=== PATIENT | female | born 1985 | race Caucasian/White ===

== ENCOUNTER 2023-05-16 13:11 | Emergency (ER) | payer OTHER, SELFPAY ==
--- NOTE | ~2023-05-16 | CT_ITS ---
EXAMINATION: CT ABDOMEN AND PELVIS WITHOUT CONTRAST CLINICAL INFORMATION: Flank pain. COMPARISON: 10/07/2017. TECHNIQUE: Multidetector volumetric imaging was performed from the superior aspect of the liver through the pubic symphysis. Sagittal and coronal reformatted images were obtained on the technologist's workstation. This CT examination was performed using dose optimization techniques as appropriate, variously including the following: *Automated exposure control *Adjustment of mA and/or kV according to patient size (this includes techniques or standardized protocols for targeted exams where dose is matched to indication/reason for exam; i.e. extremities or head) *Use of iterative reconstruction technique DLP: 859 mGy-cm FINDINGS: LUNG BASES: The visualized lung bases are unremarkable. LIVER, GALLBLADDER, AND BILIARY TREE: The liver is normal in size, shape, and attenuation. No focal hepatic lesion or biliary ductal dilatation is present. The gallbladder is unremarkable with no evidence of radiopaque gallstones, gallbladder wall thickening, or obvious pericholecystic inflammatory changes. PANCREAS: Unremarkable. SPLEEN: Unremarkable. ADRENAL GLANDS: Unremarkable. KIDNEYS AND URETERS: The kidneys are normal in size, shape, and attenuation. There is a nonobstructing 1 to 2 mm calculus upper pole left kidney. There is no hydronephrosis. BLADDER: Unremarkable. GASTROINTESTINAL TRACT: The small and large bowel are unremarkable. The appendix is unremarkable. ABDOMINAL WALL: There is a small umbilical hernia containing fat. LYMPH NODES: Normal. VASCULAR: Unremarkable. PELVIC VISCERA: Unremarkable. OSSEOUS STRUCTURES: Unremarkable. CT/CT abdomen pelvis wo IV con IMPRESSION: Nonobstructing left upper pole renal calculus. Small umbilical hernia containing fat. No acute intra-abdominal process. Fleischner guidelines were followed.
[2023-05-16 14:00] VITALS: BP 145/86; PULSE 89; RESP 14; TEMP 35.8; O2SAT 97; BMI 41.2
--- NOTE | 2023-05-16 15:20 | ED.FEMALEGU ---
HPI - Female Genitourinary General Chief complaint: Urogenital-Female Stated complaint: UTI worsening/ sent by PCP Time Seen by Provider: 05/16/23 21:27 Source: patient Mode of arrival: ambulatory Limitations: no limitations History of Present Illness HPI Narrative: Patient history of kidney stone otherwise healthy last time she had stone was last year when she had lithotripsy for last 4 days patient has been dysuria and frequency went to her PCP who started her on Macrobid after diagnosis is UTI patient improved in the symptoms in today earlier patient felt pain in right flank area and feeling hot and cold today no urinary symptoms at this time no hematuria no abdominal pain pain is in right flank area which is constant dull pain no relation with movement or breathing no upper respiratory symptoms patient is feeling otherwise normal Related Data Previous Rx's Medication Instructions Recorded ibuprofen 600 mg tablet 600 mg PO Q6H PRN fever or pain 05/16/23 #30 tabs Allergies Allergy/AdvReac Type Severity Reaction Status Date / Time ciprofloxacin [From CIPRO] Allergy Unknown HIVES Verified 05/16/23 13:59 Penicillins [PENICILLINS] Allergy Unknown HIVES Verified 05/16/23 13:59 Review of Systems Review of Systems: Yes all other systems are reviewed and are negative [facility] Social History Social History Advance Directives: No Advance Directives Information Provided: No Physical Exam Vital Signs: Vital Signs: Last Vital Signs Temp 96.4 F L 05/16/23 14:00 Pulse 89 05/16/23 14:00 Resp 14 05/16/23 14:00 BP 145/86 H 05/16/23 14:00 Pulse Ox 97 05/16/23 14:00 O2 Del Method Room Air 05/16/23 14:00 BMI result Body Mass Index 41.2 Appearance: Alert. Oriented X3. No acute distress. Eyes: No pallor or icterus ENT: Pharynx normal. Oral Mucosa moist Neck: Normal inspection. Neck supple. CVS: Normal heart rate and rhythm. Pulses normal. Respiratory: No respiratory distress. Equal air entry bilateral, no wheezing/rales/rhonchi Abdomen: Soft and nontender. Bowel sounds are present, no mass palpable, deep right CVA tenderness back: No midline spine tenderness good range of mood ambulatory in steady gait Skin: Skin warm and dry. Normal skin color. Normal skin turgor. Neuro: Oriented X 3. Course Course Course Narrative: This is an RME: Additional HPI, ROS, PE not included below will be deferred to primary provider. Patient is a 37 year old female who presents to emergency department for evaluation of flank pain. She states 3 days ago she was diagnosed with a urinary tract infection and initiated on Macrobid. She is now experiencing severe 10/10 flank pain no relief with tylenol/ ibuprofen, and reports tactile fever and chills. Plan: labs Medical Decision Making Medical Decision Making [facility] Narrative: Patient with right flank pain workup negative including CT scan showing only nonobstructive kidney urine is negative likely musculoskeletal pain Differential Diagnosis Differential Diagnoses: The differential diagnosis associated with the presentation includes Renal colic/kidney stone/UTI/pyelonephritis Admission/Observation Consideration of admission/observation: Escalation of care including admission/observation considered Lab Data [facility] Lab Attestation statement: I reviewed the patient's lab results. 05/16/23 15:12 05/16/23 15:12 Labs: Lab Results 05/16/23 Range/Units 15:12 WBC 13.8 H (4.8-10.8) X10*3/uL RBC 4.74 (4.20-5.50) X10*6/uL Hgb 14.5 (12.0-16.0) g/dl Hct 44.7 (37.0-47.0) % MCV 94.3 (80.0-98.0) fL MCH 30.6 (27.0-33.0) pg MCHC 32.4 (31.0-35.0) g/dl RDW 12.5 (11.0-16.0) % Plt Count 418 H (160-400) X10*3/uL MPV 8.8 L (9.4-12.3) fL Immature Gran % (Auto) 0.3 (0.0-0.4) % Neut % (Auto) 56.2 (45-73) % Lymph % (Auto) 35.2 (20-40) % [place] % (Auto) 5.6 (2-11) % Eos % (Auto) 2.0 (0-4) % Baso % (Auto) 0.7 (0-2) % Lymph # (Auto) 4.9 (1.2-4.9) X10*3/uL [place] # (Auto) 0.8 (0.1-1.2) X10*3/uL Eos # (Auto) 0.3 (0.0-0.4) X10*3/uL Baso # (Auto) 0.1 (0.0-0.2) X10*3/uL Abs Immat Gran (auto) 0.04 H (0.00-0.03) X10*3/uL Absolute Neuts (auto) 7.8 (2.0-8.3) x10*3/uL Absolute Nucleated RBC 0.000 (0.0-0.012) X10*3/uL Nucleated RBC % (auto) 0.0 (0.0-0.2) /100WBC Sodium 140 (135-145) mmol/L Potassium 3.6 (3.3-5.1) mmol/L Chloride 105 (96-108) mmol/L Carbon Dioxide 27 (22-29) mmol/L Anion Gap 12 (12-20) BUN 12 (9-16) mg/dL Creatinine 0.73 (0.5-1.4) mg/dL Estim Creat Clear Calc 124.7 Estimated GFR > 60 Random Glucose 100 (60-115) mg/dL Calcium 10.0 (8.4-10.2) mg/dL Beta HCG, Quant < 2 mIU/mL Urine Color Dark Yellow Urine Appearance Clear Urine pH 5.5 (5.0-9.0) Ur Specific [place] 1.020 (1.005-1.025) Urine Protein Negative (Neg-Trace) mg/dL Urine Glucose (UA) Negative (Negative) mg/dL Urine Ketones Negative (Negative) mg/dL Urine Blood Negative (Negative) Urine Nitrite Negative (Negative) Ur Leukocyte Esterase Trace H (Negative) Urine RBC 0-2 (0-2) /HPF Urine WBC 0-5 (0-5) /HPF Ur Squamous Epith Cells 3-5 (0-2) /HPF Urine Bacteria 1+ (None Seen) Hyaline Casts 0-2 (0-2) /LPF Independent Interpretation I performed an independent interpretation of an: CT Scan Radiology Impression Discussion of test interpretation with radiology: I have reviewed the radiologist's reading. Radiologist Impression: CT/CT abdomen pelvis wo IV con IMPRESSION: Nonobstructing left upper pole renal calculus. Small umbilical hernia containing fat. No acute intra-abdominal process. Fleischner guidelines were followed. Discharge Plan Discharge Clinical Impression: Renal colic on right side Patient Disposition: Home, Self-Care Instructions: Renal Colic (ED) Additional Instructions: likely you have musculoskeletal pain in the right flank Drink plenty of fluids Finish antibiotic for UTI Ibuprofen for pain Follow-up with PCP if not better Prescriptions: New ibuprofen 600 mg tablet 600 mg PO Q6H PRN (Reason: fever or pain) Qty: 30 0RF
[2023-05-16 15:26] LABS: MANUAL DIFF FLAG NO
[2023-05-16 15:30] LABS: Appearance Urine Clear; Color Urine Dark Yellow; Glucose Urine UA Negative (Negative); Leukocyte Esterase Urine Trace (Negative); Nitrite Urine Negative (Negative); PH 5.5 (5.0-9.0); UMIC TRIGGER UACC YES; Urine Blood Negative (Negative); Urine Ketones Negative (Negative); Urine Protein Negative (Neg-Trace)
[2023-05-16 15:32] LABS: Basophils Absolute Auto 0.1 X10*3/uL (0.0-0.2); Basophils Percent Auto 0.7 % (0-2); Eosinophils Absolute Auto 0.3 X10*3/uL (0.0-0.4); Hematocrit 44.7 % (37.0-47.0); Hemoglobin 14.5 g/dl (12.0-16.0); Imm Gran Abs Auto 0.04 X10*3/uL (0.00-0.03); Imm Gran Pct Auto 0.3 % (0.0-0.4); Lymphocytes Absolute Auto 4.9 X10*3/uL (1.2-4.9); Lymphocytes Percent Auto 35.2 % (20-40); Mean Corpuscular HGB Conc 32.4 g/dl (31.0-35.0); Mean Corpuscular Hemoglobin 30.6 pg (27.0-33.0); Mean Corpuscular Volume 94.3 fL (80.0-98.0); Mean Platelet Volume 8.8 fL (9.4-12.3); Monocytes Absolute Auto 0.8 X10*3/uL (0.1-1.2); Monocytes Percent Auto 5.6 % (2-11); Neutrophils Absolute Auto 7.8 x10*3/uL (2.0-8.3); Neutrophils Percent Auto 56.2 % (45-73); Platelet Count 418 X10*3/uL (160-400); Red Blood Count 4.74 X10*6/uL (4.20-5.50); Red Cell Distribution Width 12.5 % (11.0-16.0); White Blood Count 13.8 X10*3/uL (4.8-10.8)
[2023-05-16 15:39] LABS: Bacteria Urine 1+ (None Seen); Hyaline Casts Urine 0-2 /LPF (0-2); RBC Urine 0-2 /HPF (0-2); WBC Urine 0-5 /HPF (0-5)
[2023-05-16 15:42] LABS: Anion Gap 12 (12-20); Blood Urea Nitrogen 12 mg/dL (9-16); Carbon Dioxide 27 mmol/L (22-29); Chloride 105 mmol/L (96-108); Creatinine Clr Calc Pharmacy 124.7; Estimated Glomerular Filt Rate > 60; Glucose Random 100 mg/dL (60-115); Potassium 3.6 mmol/L (3.3-5.1); Sodium 140 mmol/L (135-145)
[2023-05-16 20:31] LABS: HCG Quantitative < 2 mIU/mL
[2023-05-16 22:02] VITALS: BP 145/88; PULSE 84; RESP 18; TEMP 36.9; O2SAT 95
[2023-05-16] MEDS: Ibuprofen 600 MG TABLET PO (22:02)
== END 2023-05-16 22:08 | disposition home or self-care (01) ==
PROVIDERS: Nurse Practitioner Family; Emergency Provider Internal Medicine; PCP Internal Medicine
DX: N39.0 Urinary tract infection, site not specified (principal); N23 Unspecified renal colic; R30.0 Dysuria; R35.0 Frequency of micturition; Z79.899 Other long term (current) drug therapy
CPT/HCPCS: 36415; 74176; 80048; 81001; 84702; 85025; 99284

== ENCOUNTER 2024-02-07 05:49 | Emergency (ER) | payer OTHER, SELFPAY ==
--- NOTE | ~2024-02-07 | CT_ITS ---
EXAMINATION: CT ABDOMEN AND PELVIS WITHOUT CONTRAST CLINICAL INFORMATION: 38-year-old female with left flank pain COMPARISON: May 16, 2023 TECHNIQUE: Multidetector volumetric imaging was performed from the superior aspect of the liver through the pubic symphysis. Sagittal and coronal reformatted images were obtained on the technologist's workstation. This CT examination was performed using dose optimization techniques as appropriate, variously including the following: *Automated exposure control *Adjustment of mA and/or kV according to patient size (this includes techniques or standardized protocols for targeted exams where dose is matched to indication/reason for exam; i.e. extremities or head) *Use of iterative reconstruction technique DLP: 794 mGy-cm FINDINGS: LUNG BASES: The visualized lung bases are unremarkable. LIVER, GALLBLADDER, AND BILIARY TREE: The liver is mildly enlarged all normal shape, and attenuation. No focal hepatic lesion or biliary ductal dilatation is present. The gallbladder is unremarkable with no evidence of radiopaque gallstones, gallbladder wall thickening, or obvious pericholecystic inflammatory changes. PANCREAS: Unremarkable. SPLEEN: Unremarkable. ADRENAL GLANDS: Unremarkable. KIDNEYS AND URETERS: There is mild hydroureteronephrosis on the left secondary to partial obstruction of the mid left ureter by small migrating from the collecting system stone measuring approximately 0.5 cm long and 0.2 cm wide right kidney is unremarkable and there is no hydroureteronephrosis. BLADDER: Unremarkable. GASTROINTESTINAL TRACT: The small and large bowel are unremarkable. The appendix is unremarkable. ABDOMINAL WALL: No significant hernia is appreciated. LYMPH NODES: Normal. VASCULAR: Unremarkable. PELVIC VISCERA: There is an IUD in the uterus OSSEOUS STRUCTURES: Unremarkable. CT/CT abdomen pelvis wo IV con IMPRESSION: Mild hydroureteronephrosis on the left secondary to partial obstruction of the mid left ureter by small migrating from the left collecting system stone. Fleischner guidelines were followed. Electronically signed by: Shannon Yanez MD 02/07/2024 08:32 AM EDT
[2024-02-07 05:51] VITALS: BP 141/72; PULSE 83; RESP 18; TEMP 36.6; O2SAT 96; BMI 41.2
[2024-02-07 06:20] LABS: MANUAL DIFF FLAG NO
[2024-02-07 06:26] LABS: Basophils Absolute Auto 0.1 X10*3/uL (0.0-0.2); Basophils Percent Auto 0.5 % (0-2); Eosinophils Absolute Auto 0.2 X10*3/uL (0.0-0.4); Eosinophils Percent Auto 1.6 % (0-4); Hemoglobin 13.6 g/dl (12.0-16.0); Imm Gran Abs Auto 0.04 X10*3/uL (0.00-0.03); Imm Gran Pct Auto 0.3 % (0.0-0.4); Lymphocytes Absolute Auto 4.5 X10*3/uL (1.2-4.9); Lymphocytes Percent Auto 37.1 % (20-40); Mean Corpuscular HGB Conc 33.2 g/dl (31.0-35.0); Mean Corpuscular Hemoglobin 30.7 pg (27.0-33.0); Mean Corpuscular Volume 92.6 fL (80.0-98.0); Mean Platelet Volume 8.5 fL (9.4-12.3); Monocytes Absolute Auto 0.6 X10*3/uL (0.1-1.2); Monocytes Percent Auto 5.1 % (2-11); Neutrophils Absolute Auto 6.8 x10*3/uL (2.0-8.3); Neutrophils Percent Auto 55.4 % (45-73); Platelet Count 366 X10*3/uL (160-400); Red Blood Count 4.43 X10*6/uL (4.20-5.50); Red Cell Distribution Width 12.4 % (11.0-16.0); White Blood Count 12.2 X10*3/uL (4.8-10.8)
[2024-02-07 06:35] LABS: Alanine Aminotransferase 18 U/L (0-31); Albumin Level 4.4 g/dL (3.5-5.0); Alkaline Phosphatase 60 U/L (39-117); Anion Gap 17 (12-20); Aspartate Amino Transferase 14 U/L (5-31); Bilirubin Total 0.6 mg/dL (0.0-1.0); Blood Urea Nitrogen 12 mg/dL (9-16); Calcium 9.6 mg/dL (8.4-10.2); Carbon Dioxide 20 mmol/L (22-29); Chloride 107 mmol/L (96-108); Creatinine Clr Calc Pharmacy 112.7; Estimated Glomerular Filt Rate > 60; Glucose Random 150 mg/dL (60-115); Lipase 22 U/L (8-78); Potassium 3.6 mmol/L (3.3-5.1); Sodium 140 mmol/L (135-145)
[2024-02-07 06:38] LABS: HCG Quantitative 3 mIU/mL
--- NOTE | 2024-02-07 06:41 | ED_ITS ---
HPI - General Adult General Chief complaint: General Medical Stated complaint: left side pain/kidney stone? Time Seen by Provider: 02/07/24 06:40 Source: patient Mode of arrival: ambulatory Limitations: no limitations History of Present Illness ED Provider: Heriberto GARCIA HPI narrative: This is a 38-year-old female with a past medical history of nephrolithiasis presenting to the emergency department today with complaints of left-sided flank pain that began earlier this morning. Patient states she began feeling the pain in her left side around 01:00 and took ibuprofen and went back to sleep and was proceeded to be woken up at 05:00 with severe pain rating it a 10/10. Currently patient states her pain is 5/10. Patient states that she does follow with a urologist at [facility] for recurrent kidney stones that she has had in the past. She has not seen them in over a year, and has missed her most recent ultrasound study with them. Patient denies any chest pain, shortness of breath, urinary symptoms, or trauma to the area. Related Data Previous Rx's ?Medication ?Instructions ?Recorded ibuprofen 600 mg tablet 600 mg PO Q6H PRN fever or pain 05/16/23 #30 tabs ketorolac 10 mg tablet 10 mg PO TID PRN pain 5 days #15 02/07/24 tabs nitrofurantoin 100 mg PO BID 5 days #10 caps 02/07/24 monohydrate/macrocrystals 100 mg capsule (Macrobid) prednisone 20 mg tablet 20 mg PO DAILY 5 days #5 tabs 02/07/24 tamsulosin 0.4 mg capsule (Flomax) 0.4 mg PO DAILY 2 weeks #14 caps 02/07/24 Allergies Allergy/AdvReac Type Severity Reaction Status Date / Time ciprofloxacin [From CIPRO] Allergy Unknown HIVES Verified 02/07/24 05:55 Penicillins [PENICILLINS] Allergy Unknown HIVES Verified 02/07/24 05:55 Review of Systems 2 Review of Systems: Yes all other systems are reviewed and are negative [facility] Social History Social History Smoked in Last 30 Days: No Advance Directives: No Advance Directives Information Provided: No Do you have a plan to hurt others: No Plan Physical Exam ED Vital Signs: Vital Signs - 24 hr 02/07/24 05:51 02/07/24 07:53 02/07/24 08:41 Temperature 97.9 F 97.4 F Pulse Rate 83 65 72 Respiratory Rate 18 17 12 Blood Pressure 141/72 H 193/74 H 130/81 Pulse Oximetry 96 98 97 Oxygen Delivery Method Room Air Nasal Cannula Room Air Oxygen Flow Rate 2 BMI result Body Mass Index 41.2 VSS Appearance: Alert.? Oriented X3.? No acute distress.? Head: Normocephalic, atraumatic, no step-offs or deformities Eyes: Pupils equal, round and reactive to light.? Neck: Normal inspection.? Neck supple.? CVS: Normal heart rate and rhythm.? Pulses normal.? Respiratory: No respiratory distress.? Breath sounds normal.? Abdomen: Soft and nontender.? Skin: Skin warm and dry.? Normal skin color.? Normal skin turgor.? Extremities: No lower extremity edema.? No calf ttp. 5/5 strength to bilateral upper and lower extremities Back: No midline tenderness, no C-spine tenderness, full range of motion; + CVA tenderness on left side Neuro: Oriented X 3.? No motor deficit.? No sensory deficit. CN 2-12 intact Course Reevaluation(s) Reevaluation #1: CBC with slight leukocytosis no left shift. Chemistry no acute findings eating intervention. UA with 1+ bacteria and trace leukocyte esterases. Will give Macrobid as patient has a penicillin and ciprofloxacin allergy. CT abdomen and pelvis with mild hydroureter nephrosis on the left secondary to partial obstruction of the mid left ureter by small migrating from the left collecting system stone. Fluids, Toradol, prednisone and Flomax given. Urology recommends medical treatment and discharged home with Flomax and prednisone. Will also give Macrobid for positive bacteria in urine. Will have her follow-up with her urologist. Time: 09:41 Reevaluation #2: Educated patient on diagnosis and treatment plan, answered all question, patient verbalizes understanding. At this time patient will be discharged home, advised to return with new or worsening symptoms. Educated on worrisome signs and symptoms and when to return. At this time I feel comfortable discharge home. Time: 09:46 Medications Administered Generic Name Dose Route Start Last Admin Trade Name Freq PRN Reason Stop Dose Admin Sodium Chloride 1,000 mls @ 999 mls/hr 02/07/24 08:45 02/07/24 08:51 Ns IV 02/07/24 09:45 999 mls/hr .Q1H1M MARLA Administration Sodium Chloride 1,000 mls @ 999 mls/hr 02/07/24 09:00 02/07/24 08:56 Ns IV 02/07/24 10:00 999 mls/hr .Q1H1M MARLA Administration Discontinued Medications Generic Name Dose Route Start Last Admin Trade Name Abi PRN Reason Stop Dose Admin Ketorolac Tromethamine 15 mg 02/07/24 08:07 02/07/24 08:51 Ketorolac Tromethamine 15 Mg/Ml Vial IVPUSH 02/07/24 08:08 15 mg ONCE ONE Administration Prednisone 20 mg 02/07/24 08:43 02/07/24 08:52 Prednisone 20 Mg Tablet PO 02/07/24 08:44 20 mg ONCE ONE Administration Tamsulosin HCl 0.4 mg 02/07/24 08:43 02/07/24 08:52 Tamsulosin Hcl 0.4 Mg Capsule PO 02/07/24 08:44 0.4 mg ONCE ONE Administration Medical Decision Making Medical Decision Making MDM Narrative: 38 year old F presenting with L flank pain since this morning PE - left-sided CVA tenderness Hx and pe concerning for nephrolithiasis vs hydronephrosis vs pyelonephritis vs muscle strain. Unlikely acute abdomen, pancreatitis, AAA, UTI. Plan - imaging, urine, labs Differential Diagnosis Differential Diagnoses: The differential diagnosis associated with the presentation includes Hx and pe concerning for nephrolithiasis vs hydronephrosis vs pyelonephritis vs muscle strain. Unlikely acute abdomen, pancreatitis, AAA, UTI. Admission/Observation Possible Lab Data 02/07/24 06:14 02/07/24 06:14 Labs: Lab Results 02/07/24 02/07/24 Range/Units 06:14 08:43 WBC 12.2 H (4.8-10.8) X10*3/uL RBC 4.43 (4.20-5.50) X10*6/uL Hgb 13.6 (12.0-16.0) g/dl Hct 41.0 (37.0-47.0) % MCV 92.6 (80.0-98.0) fL MCH 30.7 (27.0-33.0) pg MCHC 33.2 (31.0-35.0) g/dl RDW 12.4 (11.0-16.0) % Plt Count 366 (160-400) X10*3/uL MPV 8.5 L (9.4-12.3) fL Immature Gran % (Auto) 0.3 (0.0-0.4) % Neut % (Auto) 55.4 (45-73) % Lymph % (Auto) 37.1 (20-40) % [place] % (Auto) 5.1 (2-11) % Eos % (Auto) 1.6 (0-4) % Baso % (Auto) 0.5 (0-2) % Lymph # (Auto) 4.5 (1.2-4.9) X10*3/uL [place] # (Auto) 0.6 (0.1-1.2) X10*3/uL Eos # (Auto) 0.2 (0.0-0.4) X10*3/uL Baso # (Auto) 0.1 (0.0-0.2) X10*3/uL Abs Immat Gran (auto) 0.04 H (0.00-0.03) X10*3/uL Absolute Neuts (auto) 6.8 (2.0-8.3) x10*3/uL Absolute Nucleated RBC 0.000 (0.0-0.012) X10*3/uL Nucleated RBC % (auto) 0.0 (0.0-0.2) /100WBC Sodium 140 (135-145) mmol/L Potassium 3.6 (3.3-5.1) mmol/L Chloride 107 (96-108) mmol/L Carbon Dioxide 20 L (22-29) mmol/L Anion Gap 17 (12-20) BUN 12 (9-16) mg/dL Creatinine 0.80 (0.5-1.4) mg/dL Estim Creat Clear Calc 112.7 Estimated GFR > 60 Random Glucose 150 H (60-115) mg/dL Calcium 9.6 (8.4-10.2) mg/dL Total Bilirubin 0.6 (0.0-1.0) mg/dL AST 14 (5-31) U/L ALT 18 (0-31) U/L Alkaline Phosphatase 60 (39-117) U/L Total Protein 7.0 (6.5-8.0) g/dL Albumin 4.4 (3.5-5.0) g/dL Lipase 22 (8-78) U/L Beta HCG, Quant 3 mIU/mL Urine Color Yellow Urine Appearance Clear Urine pH 5.5 (5.0-9.0) Ur Specific [place] 1.020 (1.005-1.025) Urine Protein Trace (Neg-Trace) mg/dL Urine Glucose (UA) Negative (Negative) mg/dL Urine Ketones Negative (Negative) mg/dL Urine Blood Large (3+) H (Negative) Urine Nitrite Negative (Negative) Ur Leukocyte Esterase Trace H (Negative) Discharge Plan Discharge Clinical Impression: Kidney calculi Patient Disposition: Home, Self-Care Instructions: Kidney Stones (ED), Renal Colic (ED) Additional Instructions: Take your medications as prescribed. If you were prescribed antibiotics today, it is important that you take your medication to their entirety, do not skip any doses, do not finish them early. Follow-up with your primary care provider this week. Return to the emergency department with new or worsening symptoms. Such as fevers, chills, chest pain, shortness of breath, nausea, vomiting, dizziness, headache, vision changes, lethargy In case of emergency call 911 Toradol has been sent to your pharmacy, you tolerated this well in the department. Please take this as prescribed do not take this with ibuprofen, or other NSAIDs, do not mix this with alcohol. Side effects of this medication including increased risk for bleeding and possible kidney injury. Please follow-up with urology within a week CT/CT abdomen pelvis wo IV con IMPRESSION: Mild hydroureteronephrosis on the left secondary to partial obstruction of the mid left ureter by small migrating from the left collecting system stone. Prescriptions: New prednisone 20 mg tablet 20 mg PO DAILY 5 Days Qty: 5 0RF tamsulosin [Flomax] 0.4 mg capsule 0.4 mg PO DAILY 14 Days Qty: 14 0RF ketorolac 10 mg tablet 10 mg PO TID PRN (Reason: pain) 5 Days Qty: 15 0RF nitrofurantoin monohyd/m-cryst [Macrobid] 100 mg capsule 100 mg PO BID 5 Days Qty: 10 0RF Rx Instructions: must administer with a meal/food No Action ibuprofen 600 mg tablet 600 mg PO Q6H PRN (Reason: fever or pain) Qty: 30 0RF Referrals: [facility] [place] Group] - 1 day Rupinder Moreno MD [Primary Care Provider] - 2 days Stand Alone Forms: Work/School Release Print Language: Kinyarwanda
[2024-02-07 07:53] VITALS: BP 193/74; PULSE 65; RESP 17; O2SAT 98
[2024-02-07 08:41] VITALS: BP 130/81; PULSE 72; RESP 12; TEMP 36.3; O2SAT 97
[2024-02-07 08:48] LABS: Appearance Urine Clear; Color Urine Yellow; Glucose Urine UA Negative (Negative); Leukocyte Esterase Urine Trace (Negative); Nitrite Urine Negative (Negative); PH 5.5 (5.0-9.0); UMIC TRIGGER UACC YES; Urine Blood Large (3+) (Negative); Urine Ketones Negative (Negative); Urine Protein Trace mg/dL (Neg-Trace)
[2024-02-07] MEDS: Ketorolac Tromethamine 15 MG/ML VIAL IVPUSH (08:51)
[2024-02-07] MEDS: 0.9 % Sodium Chloride 1,000 ML 999 ML IV ×2 (08:51→08:56)
[2024-02-07] MEDS: Tamsulosin HCL 0.4 MG CAPSULE PO (08:52)
[2024-02-07] MEDS: predniSONE 20 MG TABLET PO (08:52)
[2024-02-07] MEDS: Morphine Sulfate Immed Release 15 MG TABLET PO (10:35)
[2024-02-07 11:09] VITALS: BP 140/91; PULSE 66; RESP 16; TEMP 36.5; O2SAT 99
[2024-02-07 11:57] LABS: Bacteria Urine None Seen (None Seen); Hyaline Casts Urine 0-2 /LPF (0-2); RBC Urine >20 /HPF (0-2); WBC Urine 0-5 /HPF (0-5)
== END 2024-02-07 11:10 | disposition home or self-care (01) ==
PROVIDERS: Emergency Provider Emergency Medicine; PCP Internal Medicine
DX: N13.2 Hydronephrosis with renal and ureteral calculous obstruction (principal); R10.9 Unspecified abdominal pain
CPT/HCPCS: 36415; 74176; 80053; 81001; 83690; 84702; 85025; 96361; 96374; 96375; 99284; J1885

== ENCOUNTER 2024-02-10 10:06 | Day surgery (SDC) | payer OTHER, SELFPAY ==
[2024-02-10] VITALS (13 sets, daily range): BP systolic 136–186; BP diastolic 74–106; PULSE 64–88; RESP 13–17; TEMP 36.1–37.3; O2SAT 96–99; BMI 36.1
--- NOTE | ~2024-02-10 | US_ITS ---
EXAMINATION: US RETROPERITONEAL LIMITED, LEFT(RENAL ONLY) CLINICAL INFORMATION: Left-sided flank pain. COMPARISON: CT abdomen pelvis dated 02/07/2024 TECHNIQUE: Real-time imaging of the left kidney. FINDINGS: LEFT KIDNEY: 12.3 x 6.2 x 5.8 cm (SAG x AP x TRV). The kidney is normal in size, contour, and echogenicity. Renal cortical thickness is normal. No calculi or focal parenchymal lesions. No hydronephrosis. US/US renal LT IMPRESSION: Unremarkable study. No evidence for hydronephrosis or calcification at this time.. Electronically signed by: James Christie MD 02/10/2024 02:00 PM EDT RP
--- NOTE | ~2024-02-10 | FL_ITS ---
EXAMINATION: FLUOROSCOPY GUIDANCE FOR NEEDLE PLACEMENT CLINICAL INFORMATION: Left ureteral stent COMPARISON: None available. TECHNIQUE: Fluoroscopy provided in the OR. FINDINGS: 5 fluoroscopic images demonstrate placement of left-sided double-J ureteral stent. FLUOROSCOPY TIME: 19 seconds FL/FL guidance in OR IMPRESSION: Fluoroscopy provided in the OR during double-J ureteral stent placement. Refer to operative report for full procedure details. Electronically signed by: Maverick Kelly MD 02/10/2024 11:00 PM EDT
[2024-02-10 10:26] LABS: MANUAL DIFF FLAG NO
[2024-02-10 10:28] LABS: Appearance Urine Hazy; Color Urine Yellow; Glucose Urine UA Negative (Negative); Leukocyte Esterase Urine Negative (Negative); Nitrite Urine Negative (Negative); PH 5.5 (5.0-9.0); Specific Gravity - Urine >= 1.030 (1.005-1.025); Urine Blood Negative (Negative); Urine Ketones Trace mg/dL (Negative); Urine Protein Negative (Neg-Trace)
[2024-02-10 10:29] LABS: Basophils Absolute Auto 0.1 X10*3/uL (0.0-0.2); Basophils Percent Auto 0.6 % (0-2); Eosinophils Absolute Auto 0.2 X10*3/uL (0.0-0.4); Eosinophils Percent Auto 1.7 % (0-4); Hematocrit 39.5 % (37.0-47.0); Hemoglobin 13.3 g/dl (12.0-16.0); Imm Gran Abs Auto 0.06 X10*3/uL (0.00-0.03); Imm Gran Pct Auto 0.6 % (0.0-0.4); Lymphocytes Absolute Auto 2.9 X10*3/uL (1.2-4.9); Lymphocytes Percent Auto 26.6 % (20-40); Mean Corpuscular HGB Conc 33.7 g/dl (31.0-35.0); Mean Corpuscular Hemoglobin 31.4 pg (27.0-33.0); Mean Corpuscular Volume 93.2 fL (80.0-98.0); Mean Platelet Volume 8.8 fL (9.4-12.3); Monocytes Absolute Auto 0.6 X10*3/uL (0.1-1.2); Monocytes Percent Auto 5.3 % (2-11); Neutrophils Absolute Auto 7.1 x10*3/uL (2.0-8.3); Neutrophils Percent Auto 65.2 % (45-73); Platelet Count 347 X10*3/uL (160-400); Red Blood Count 4.24 X10*6/uL (4.20-5.50); Red Cell Distribution Width 12.4 % (11.0-16.0); White Blood Count 10.8 X10*3/uL (4.8-10.8)
[2024-02-10 10:42] LABS: Alanine Aminotransferase 16 U/L (0-31); Albumin Level 4.3 g/dL (3.5-5.0); Alkaline Phosphatase 62 U/L (39-117); Anion Gap 15 (12-20); Aspartate Amino Transferase 8 U/L (5-31); Bilirubin Total 0.2 mg/dL (0.0-1.0); Blood Urea Nitrogen 15 mg/dL (9-16); Calcium 9.7 mg/dL (8.4-10.2); Carbon Dioxide 22 mmol/L (22-29); Chloride 107 mmol/L (96-108); Creatinine Clr Calc Pharmacy 96.1; Estimated Glomerular Filt Rate > 60; Glucose Random 216 mg/dL (60-115); Sodium 140 mmol/L (135-145); Total Protein 6.9 g/dL (6.5-8.0)
--- NOTE | 2024-02-10 11:20 | ED.ABDPAIN ---
HPI - Abdominal Pain General Chief Complaint: Abdominal Pain Stated Complaint: Seen other day - kidney stones Time Seen by Provider: 02/10/24 11:20 Source: patient Mode of arrival: ambulatory Limitations: no limitations History of Present Illness ED Provider: Jose F GARCIA HPI narrative: This is a 38-year-old female with a past medical history of nephrolithiasis ( last seen on 02/07/24 for l sided obstructing stone) presenting to the emergency department today with complaints of left-sided flank pain that began 02/07/24. Patient states she has been taking meds prescribed to her. 0. Patient denies any fevers, chills, nausea, vomiting, chest pain, shortness of breath, urinary symptoms, or trauma to the area. Related Data Previous Rx's ?Medication ?Instructions ?Recorded ibuprofen 600 mg tablet 600 mg PO Q6H PRN fever or pain 05/16/23 #30 tabs ketorolac 10 mg tablet 10 mg PO TID PRN pain 5 days #15 02/07/24 tabs nitrofurantoin 100 mg PO BID 5 days #10 caps 02/07/24 monohydrate/macrocrystals 100 mg capsule (Macrobid) prednisone 20 mg tablet 20 mg PO DAILY 5 days #5 tabs 02/07/24 tamsulosin 0.4 mg capsule (Flomax) 0.4 mg PO DAILY 2 weeks #14 caps 02/07/24 Allergies Allergy/AdvReac Type Severity Reaction Status Date / Time ciprofloxacin [From CIPRO] Allergy Unknown HIVES Verified 02/10/24 10:12 Penicillins [PENICILLINS] Allergy Unknown HIVES Verified 02/10/24 10:12 Review of Systems Review of Systems Yes all other systems are reviewed and are negative PMFSH Past Medical History Attestation statement: The following information was validated with the patient. Source: old records reviewed and nursing notes reviewed Social History Social History Smoked in Last 30 Days: Yes Use of substances other than those prescribed or required for medical reasons: Yes Substance Use Type: Marijuana Advance Directives: No Do you have a plan to hurt others: No Plan Patient : No Physical Exam ED Vital Signs: Vital Signs - 24 hr 02/10/24 10:10 02/10/24 12:48 Temperature 97.9 F 98.0 F Pulse Rate 88 69 Respiratory Rate 16 16 Blood Pressure 186/100 H 139/81 Pulse Oximetry 98 98 Oxygen Delivery Method Room Air Room Air BMI result Body Mass Index 36.1 vss Appearance: Alert.? Oriented X3.? No acute distress.? Head: Normocephalic, atraumatic, no step-offs or deformities Eyes: Pupils equal, round and reactive to light.? Neck: Normal inspection.? Neck supple.? CVS: Normal heart rate and rhythm.? Pulses normal.? Respiratory: No respiratory distress.? Breath sounds normal.? Abdomen: Soft and nontender.? Skin: Skin warm and dry.? Normal skin color.? Normal skin turgor.? Extremities: No lower extremity edema.? No calf ttp. 5/5 strength to bilateral upper and lower extremities Back: No midline tenderness, no C-spine tenderness, full range of motion; + CVA tenderness on left side Neuro: Oriented X 3.? No motor deficit.? No sensory deficit. CN 2-12 intact Course Reevaluation(s) Reevaluation #1: cbc unremarkable. Chemistry unremarkable. UA clean. US renal left unremarkable study. Patient will be seen by urology likely OR later today as she last drank rositaamber w/ jazmin at 0800 Plan- admit to urology Time: 14:07 Medical Decision Making Medical Decision Making [facility] Narrative: 38 year old F presenting with L flank pain since this morning PE - left-sided CVA tenderness Hx and pe concerning for nephrolithiasis vs hydronephrosis vs pyelonephritis vs muscle strain. Unlikely acute abdomen, pancreatitis, AAA, UTI. Plan - imaging, urine, labs Differential Diagnosis Differential Diagnoses: The differential diagnosis associated with the presentation includes Hx and pe concerning for nephrolithiasis vs hydronephrosis vs pyelonephritis vs muscle strain. Unlikely acute abdomen, pancreatitis, AAA, UTI. Admission/Observation Consideration of admission/observation: Escalation of care including admission/observation considered Likely Consult Healthcare Provider Management of the patient was discussed with: Manager Exchange (Dr. [facility] ) Lab Data [facility] Lab Attestation statement: I reviewed the patient's lab results. 02/10/24 10:23 02/10/24 10:23 Labs: Lab Results 02/10/24 Range/Units 10:23 WBC 10.8 (4.8-10.8) X10*3/uL RBC 4.24 (4.20-5.50) X10*6/uL Hgb 13.3 (12.0-16.0) g/dl Hct 39.5 (37.0-47.0) % MCV 93.2 (80.0-98.0) fL MCH 31.4 (27.0-33.0) pg MCHC 33.7 (31.0-35.0) g/dl RDW 12.4 (11.0-16.0) % Plt Count 347 (160-400) X10*3/uL MPV 8.8 L (9.4-12.3) fL Immature Gran % (Auto) 0.6 H (0.0-0.4) % Neut % (Auto) 65.2 (45-73) % Lymph % (Auto) 26.6 (20-40) % [place] % (Auto) 5.3 (2-11) % Eos % (Auto) 1.7 (0-4) % Baso % (Auto) 0.6 (0-2) % Lymph # (Auto) 2.9 (1.2-4.9) X10*3/uL [place] # (Auto) 0.6 (0.1-1.2) X10*3/uL Eos # (Auto) 0.2 (0.0-0.4) X10*3/uL Baso # (Auto) 0.1 (0.0-0.2) X10*3/uL Abs Immat Gran (auto) 0.06 H (0.00-0.03) X10*3/uL Absolute Neuts (auto) 7.1 (2.0-8.3) x10*3/uL Absolute Nucleated RBC 0.000 (0.0-0.012) X10*3/uL Nucleated RBC % (auto) 0.0 (0.0-0.2) /100WBC Sodium 140 (135-145) mmol/L Potassium 4.0 (3.3-5.1) mmol/L Chloride 107 (96-108) mmol/L Carbon Dioxide 22 (22-29) mmol/L Anion Gap 15 (12-20) BUN 15 (9-16) mg/dL Creatinine 0.84 (0.5-1.4) mg/dL Estim Creat Clear Calc 96.1 Estimated GFR > 60 Random Glucose 216 H (60-115) mg/dL Calcium 9.7 (8.4-10.2) mg/dL Total Bilirubin 0.2 (0.0-1.0) mg/dL AST 8 (5-31) U/L ALT 16 (0-31) U/L Alkaline Phosphatase 62 (39-117) U/L Total Protein 6.9 (6.5-8.0) g/dL Albumin 4.3 (3.5-5.0) g/dL Urine Color Yellow Urine Appearance Hazy Urine pH 5.5 (5.0-9.0) Ur Specific [place] >= 1.030 H (1.005-1.025) Urine Protein Negative (Neg-Trace) mg/dL Urine Glucose (UA) Negative (Negative) mg/dL Urine Ketones Trace (Negative) mg/dL Urine Blood Negative (Negative) Urine Nitrite Negative (Negative) Ur Leukocyte Esterase Negative (Negative) Urine Test NEGATIVE (NEGATIVE) Independent Interpretation I performed an independent interpretation of an: Ultrasound (LEFT KIDNEY: 12.3 x 6.2 x 5.8 cm (SAG x AP x TRV). The kidney is normal in size, contour, and echogenicity. Renal cortical thickness is normal. No calculi or focal parenchymal lesions. No hydronephrosis. US/US renal LT IMPRESSION: Unremarkable study. No evidence for hydroneph) and CT Scan (from 02/07/24) Radiology Impression Discussion of test interpretation with radiology: I have reviewed the radiologist's reading. Prescription Management I considered prescription management with: Pain Medication (taking po toradol ) Chronic Conditions Patient?s care impacted by: Other (obesity, kidney stones ) Medications Administered Discontinued Medications Generic Name Dose Route Start Last Admin Trade Name Freq PRN Reason Stop Dose Admin Sodium Chloride 1,000 mls @ 999 mls/hr 02/10/24 11:30 02/10/24 13:12 Ns IV 02/10/24 12:30 Infused .Q1H1M MARLA Infusion Morphine Sulfate 4 mg 02/10/24 11:26 02/10/24 12:01 Morphine Sulfate 4 Mg/Ml Cartridge IVPUSH 02/10/24 11:27 4 mg ONCE ONE Administration Protocol Critical Care Time Critical Care Time Critical Care Time: Yes Total Critical Care Time: 35 Attestation: I attest to this time spent taking care of the patient, obtaining history, physical, reviewing labs, imaging, treatment of patients condition +/- specialist/hospitalist consult Discharge Plan Discharge Clinical Impression: Obstructive uropathy, Left flank pain Patient Disposition: Admitted As Inpatient Prescriptions: No Action ibuprofen 600 mg tablet 600 mg PO Q6H PRN (Reason: fever or pain) Qty: 30 0RF prednisone 20 mg tablet 20 mg PO DAILY 5 Days Qty: 5 0RF tamsulosin [Flomax] 0.4 mg capsule 0.4 mg PO DAILY 14 Days Qty: 14 0RF ketorolac 10 mg tablet 10 mg PO TID PRN (Reason: pain) 5 Days Qty: 15 0RF nitrofurantoin monohyd/m-cryst [Macrobid] 100 mg capsule 100 mg PO BID 5 Days Qty: 10 0RF Rx Instructions: must administer with a meal/food Print Language: Pashto
[2024-02-10] MEDS: Morphine Sulfate 4 MG/ML CARTRIDGE IVPUSH (12:01)
[2024-02-10] MEDS: 0.9 % Sodium Chloride 1,000 ML 999 ML IV ×2 (12:02→14:37)
--- NOTE | 2024-02-10 12:19 | PC.NURSE ---
pt presents to the ED from home d/t increase in left flank pain x last night. pt states she came in 3 days ago w/ same presenting sx where abd pelvis CT displayed obstructing kidney stone. pt was sent home w/ medication w/ no good effect. pt states sudden onset 10/10 pain last night w/ associated nausea. labs obtained in triage. 20gIV placed in the right AC - IVF/medication administered per provider order. effectiveness pending. pt waiting for ultrasound to be completed. no sob/wob noted. respirations even/unlabored. plan of care ongoing. call wiggins placed within reach.
--- NOTE | 2024-02-10 12:33 | PC.NURSE ---
ultrasound being completed at this time.
--- NOTE | 2024-02-10 13:05 | PC.NURSE ---
report given to fly RN in short stay at this time. ETA pickup is 1500. patient notified/aware.
[2024-02-10 13:26] LABS: UPreg QC Valid YES; Urine Pregnancy NEGATIVE (NEGATIVE)
--- NOTE | 2024-02-10 14:34 | PHA.MEDREC ---
Addendum entered by Remi Doyle 02/10/24 14:45: Reviewed by [facility] Original Note: Pharmacy Consult ? Medication Reconciliation Pharmacy has completed the medication reconciliation. Patient stated she does take 10 mg montelukast, even though there are no claims. The ketorolac, Macrobid and prednisone were prescribed friday for a five day course and flomax for a 14 day course, which she stated she began friday. Patient also stated that she take trulicity weekly on Tuesdays, however did not take todays dose.
[2024-02-10] MEDS: Morphine Sulfate 2 MG/ML CARTRIDGE IVPUSH (14:37)
--- NOTE | 2024-02-10 15:21 | PC.NURSE ---
pt being transported to OR at this time.
--- NOTE | 2024-02-10 15:49 | PC.NURSE ---
Patient arrived to [facility] with # 20 in right AC. Site asymptomatic, flushed with no issues.
--- NOTE | 2024-02-10 15:52 | HO.ANESPROP2 ---
HPI - Anesthesia Eval Consult details Narrative: 38 yo female patient for Cysto, Left ureteroscopy, retro, possible laser lithotripsy, possible stent placement Anesthesia Pre-Procedure Meds Is the patient on any of the following meds?: GLP1/DPP4 (Last dose of trulicity 01/27/24) PMFSH Active Problems Active Problems: All Active Problems Left flank pain (Acute) Obstructive uropathy (Acute) GOLDIE. Diagnosed about 1 year ago. 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 If so, by whom?: No Are you DNR?: No Advance Directives: No Advance Directives Information Provided: No (Declined) Advance Directives on File: No Do you have a plan to hurt others: No Plan Recently lost weight without trying: No How much weight loss: Not applicable Eating poorly because of decreased appetite: No Nutrition screen score: 0 Nutrition Risks: No Nutritional Risk Patient : No : No Poor oral hygiene: Yes (upper and lower back- broken teeth) Meds Allergies Allergy/AdvReac Type Severity Reaction Status Date / Time ciprofloxacin [From CIPRO] Allergy Intermediate HIVES Verified 02/10/24 15:34 Penicillins [PENICILLINS] Allergy Intermediate HIVES Verified 02/10/24 15:34 Home Medications ?Medication ?Instructions ?Recorded ?Confirmed ?Last Taken ?Type albuterol sulfate 90 mcg/actuation 2 puff inhalation Q6H PRN wheezing 02/10/24 02/10/24 Unknown History aerosol inhaler (Ventolin HFA) budesonide-formoterol HFA 160 2 puff inhalation BID 02/10/24 02/10/24 02/09/24 History mcg-4.5 mcg/actuation aerosol inhaler dulaglutide 1.5 mg/0.5 mL 1.5 mg subcut TU 02/10/24 02/10/24 01/27/24 History subcutaneous pen injector (Trulicity) losartan 50 mg tablet 50 mg PO DAILY 02/10/24 02/10/24 02/10/24 History montelukast 10 mg tablet 10 mg PO DAILY 02/10/24 02/10/24 02/10/24 History Exam Height,Weight and Vital Signs: Height 5 ft 3 in Weight 92.5 kg Last Vital Signs Temp 99.1 F 02/10/24 15:38 Pulse 80 02/10/24 15:38 Resp 16 02/10/24 15:38 BP 160/96 H 02/10/24 15:38 Pulse Ox 99 02/10/24 15:38 O2 Del Method Room Air 02/10/24 15:38 Pertinent Lab Results Pertinent Lab Results: Laboratory Tests 02/10/24 10:23 WBC 10.8 RBC 4.24 Hgb 13.3 Hct 39.5 MCV 93.2 MCH 31.4 MCHC 33.7 RDW 12.4 Plt Count 347 MPV 8.8 L Immature Gran % (Auto) 0.6 H Neut % (Auto) 65.2 Lymph % (Auto) 26.6 [place] % (Auto) 5.3 Eos % (Auto) 1.7 Baso % (Auto) 0.6 Lymph # (Auto) 2.9 [place] # (Auto) 0.6 Eos # (Auto) 0.2 Baso # (Auto) 0.1 Abs Immat Gran (auto) 0.06 H Absolute Neuts (auto) 7.1 Absolute Nucleated RBC 0.000 Nucleated RBC % (auto) 0.0 Sodium 140 Potassium 4.0 Chloride 107 Carbon Dioxide 22 Anion Gap 15 BUN 15 Creatinine 0.84 Estim Creat Clear Calc 96.1 Estimated GFR > 60 Random Glucose 216 H Calcium 9.7 Total Bilirubin 0.2 AST 8 ALT 16 Alkaline Phosphatase 62 Total Protein 6.9 Albumin 4.3 Urine Color Yellow Urine Appearance Hazy Urine pH 5.5 Ur Specific [place] >= 1.030 H Urine Protein Negative Urine Glucose (UA) Negative Urine Ketones Trace Urine Blood Negative Urine Nitrite Negative Ur Leukocyte Esterase Negative Urine Test NEGATIVE Airway Mallampati Class: III TM Dist: >3cm Neck ROM: Full Loose/Missing/Broken Teeth: Yes (Missing tooth top right, bottom left. Denies broken or loose teeth) Heart: RRR Lungs: CTAB Assessment and Plan Assessment Anesthesia Assessment: Anesthesia Plan Discussed and Chart Reviewed Final Anesthetic Review Family History of Problems with Anesthesia: No History of Problems with Anesthesia: No NPO: Yes ASA Class: III Final Preanesthetic Review: No Changes in Pt Med Stat, Meds/Allgs Chart Reviewed, Consent Obtained/Reviewed and Anes Risks/Benef Reviewed Patient Risk: Intermediate Procedure Risk: Low Assessment/Block/Sedation in SS: Assess/Block/Sedation-SS Anesthetic Plan Anesthetic Plan: GA Disposition: Standard PACU
[2024-02-10 15:55] LABS: Glucose, Whole Blood 193 mg/dL (60-115)
--- NOTE | 2024-02-10 15:58 | MHC.SHP ---
Pre-Procedural Eval Section A - 24 Hr Update-Section A only Date of Service: 02/10/24 The patient is an INPATIENT: No The patient has been examined within 24 hours of the surgical procedure. The History & Physical has been completed within 30 days and I have reviewed it.: Yes Section B - Complete if H&P > 30 days Chief Complaint: ureteral stone, flank pain Details of Present Illness: Nancy has h/o kidney stones, was seen in ED a few days ago, CTAP left ureteral stone, returned with acute left flank pain, renal US today no hydronephrosis. Relevant Family History (Specify if Yes): No Allergies: Allergies Allergy/AdvReac Type Severity Reaction Status Date / Time ciprofloxacin [From CIPRO] Allergy Intermediate HIVES Verified 02/10/24 15:34 Penicillins [PENICILLINS] Allergy Intermediate HIVES Verified 02/10/24 15:34 Review of Systems Sugical H&P ROS: Negative: Constitution, Cardiovascular, Respiratory, Musculoskeletal and Integumentary Review of Systems Comment: 10 point ROS negative other than stated in HPI Plan Diagnosis/Plan: Unchanged I have reviewed the history and physical and performed a pertinent physical examination on my patient. No changes have occurred unless specified. Plan for Cystoscopy, left ureteroscopy, possible laser lithotripsy, possible ureteral stent. Risks discussed included but not limited to, possible need to repeat procedure if stone is not completely fragmented, Irritative voiding symptoms, bladder spasms, urgency, blood in urine. Time Spent With Patient Time: Total time managing care of this patient today ____ minutes.
[2024-02-10] MEDS: Lactated Ringers 1,000 ML 100 ML IVCONT (16:10)
--- NOTE | 2024-02-10 17:21 | W.PM.OPN ---
Operative Note Operative Note Date of Service: 02/10/24 Narrative: PreOperative Diagnosis:?? Left ureteral stone, left flank pain Post Operative Diagnosis:?? left ureteral stone, left flank pain Procedure: - Cystoscopy, left retrograde, left ureteroscopy laser lithotripsy stent insertion, 6 [place] by 24 cm Surgeon:?Dr Theo Heredia Anesthesia:? General Procedure: After informed consent was verified the patient was brought to the operating placed on the OR table in supine position.? General Anesthesia was administered per protocol.? The patient was placed in lithotomy position, prepped and draped in the usual sterile fashion.? Safety pause time-out and side of surgery confirmed.? Antibiotics confirmed. 2% lidocaine jelly 10 mL was passed transurethrally. A 22 [place] cystoscope was inserted transurethrally, the bladder was visualized.? Both ureteric orifices were in normal position. An open-ended ureteral catheter was passed into the left ureteral orifice and a retrograde examination was performed.. A guidewire was passed through the ureteral catheter into the kidney. The balloon dilator size 12 fr x 4 cm was passed over the guide-wire the balloon was inflated to 10 mmHg and the intramural ureter was dilated for40 seconds. The balloon was deflated and removed. After removing the balloon dilator a 2nd guidewire was then passed into the kidney to use as a safety. The cystoscope was removed, leaving both guidewires in place. One guidewire was used as the safety and was attached to the draping. The semi rigid ureteroscope was passed over one of the guidewires to the level of the stone in the ureter. One guidewire was then removed. Laser lithotripsy of the stone was done using the 272 fiber with a alternating pulsating and dusting setting. There was good fragmentation of the stone. The 0 degree basket was passed through the ureteroscope, stone fragment(s) removed and sent for analysis. The ureteroscope was removed. The cystoscope was passed over the safety guidewire. A? 6 [place] by 24 cm stent was placed into the ureter and renal pelvis under a combination of fluoroscopy and direct visualization. The bladder was emptied.? The rigid cystoscope was removed. ? The patient tolerated the procedure well and was brought to the recovery room in stable condition. Complications: None Drains: Ureteral stent as dictated above
[2024-02-10] MEDS: fentaNYL citrate/PF 100 MCG/2 ML VIAL 25 MCG IVPUSH ×2 (17:46→17:53)
[2024-02-10] MEDS: Phenazopyridine HCL 200 MG TABLET PO (18:01)
--- NOTE | 2024-02-10 18:13 | PM.DS ---
DS: Providers Provider Date of Service: 02/10/24 Date of discharge: 02/10/24 Primary care physician: Rupinder Moreno MD Attending physician on discharge: Theo Heredia DS: Diagnosis Discharge Diagnosis (1) Left flank pain: Status: Acute (2) Obstructive uropathy: Status: Acute DS: Summary Status at Discharge Functional status at discharge: independent ambulation Overall status at discharge: patient is back to baseline Time Attestation Total time managing care of this patient today: 40 mintues. Discharge Coordination Time (in mins): 40 min Quality: Safe Use of Opioids Does Pt have an Active Cancer Diagnosis on the Problem List?: No Quality: Stroke Does the patient have a stroke diagnosis?: No Physical Exam Vital Signs: Vital Signs: Last Vital Signs Temp 97 F 02/10/24 17:27 Pulse 64 02/10/24 18:01 Resp 16 02/10/24 18:01 BP 143/82 H 02/10/24 18:01 Pulse Ox 98 02/10/24 18:01 O2 Del Method Room Air 02/10/24 18:01 BMI result Body Mass Index 36.1 DS: Data Data Completed and Pending Pending studies at discharge: Pending at discharge 02/10/24 17:21 Surgical [PTH] Routine Labs on day of discharge: Laboratory Results - last 24 hr 02/10/24 02/10/24 10:23 15:51 WBC 10.8 RBC 4.24 Hgb 13.3 Hct 39.5 MCV 93.2 MCH 31.4 MCHC 33.7 RDW 12.4 Plt Count 347 MPV 8.8 L Immature Gran % (Auto) 0.6 H Neut % (Auto) 65.2 Lymph % (Auto) 26.6 [place] % (Auto) 5.3 Eos % (Auto) 1.7 Baso % (Auto) 0.6 Lymph # (Auto) 2.9 [place] # (Auto) 0.6 Eos # (Auto) 0.2 Baso # (Auto) 0.1 Abs Immat Gran (auto) 0.06 H Absolute Neuts (auto) 7.1 Absolute Nucleated RBC 0.000 Nucleated RBC % (auto) 0.0 Sodium 140 Potassium 4.0 Chloride 107 Carbon Dioxide 22 Anion Gap 15 BUN 15 Creatinine 0.84 Estim Creat Clear Calc 96.1 Estimated GFR > 60 POC Glucose 193 H Random Glucose 216 H Calcium 9.7 Total Bilirubin 0.2 AST 8 ALT 16 Alkaline Phosphatase 62 Total Protein 6.9 Albumin 4.3 Urine Color Yellow Urine Appearance Hazy Urine pH 5.5 Ur Specific [place] >= 1.030 H Urine Protein Negative Urine Glucose (UA) Negative Urine Ketones Trace Urine Blood Negative Urine Nitrite Negative Ur Leukocyte Esterase Negative Urine Test NEGATIVE Discharge Plan Discharge Patient Disposition: Home, Self-Care Discharge Medications: No Action phenazopyridine [Pyridium] 200 mg tablet 200 mg PO Q8H PRN (Reason: pain) Qty: 30 0RF Rx Instructions: take with food tolterodine 4 mg capsule,extended release 24hr 4 mg PO DAILY Qty: 30 0RF ibuprofen 600 mg tablet 600 mg PO Q6H PRN (Reason: fever or pain) Qty: 30 0RF prednisone 20 mg tablet 20 mg PO DAILY 5 Days Qty: 5 0RF tamsulosin [Flomax] 0.4 mg capsule 0.4 mg PO DAILY 14 Days Qty: 14 0RF ketorolac 10 mg tablet 10 mg PO TID PRN (Reason: pain) 5 Days Qty: 15 0RF nitrofurantoin monohyd/m-cryst [Macrobid] 100 mg capsule 100 mg PO BID 5 Days Qty: 10 0RF Rx Instructions: must administer with a meal/food, 5 day course, started Friday02/07/24 losartan 50 mg tablet 50 mg PO DAILY albuterol sulfate [Ventolin HFA] 90 mcg/actuation HFA aerosol inhaler 2 puff inhalation Q6H PRN (Reason: wheezing) budesonide-formoterol 160-4.5 mcg/actuation HFA aerosol inhaler 2 puff inhalation BID Trulicity 1.5 mg/0.5 mL pen injector 1.5 mg subcut TU montelukast 10 mg Tablet 10 mg PO DAILY Discharge Orders: Discharge Order (Routine); Ordered 02/10/24 Ordered By: Theo Heredia Diet: Advance to usual diet Activity on Discharge: As tolerated Print Language: Dominican Discharge Date/Time: 02/10/24 18:50
[2024-02-17 19:25] LABS: Stone Source KIDNEY STONE
== END 2024-02-10 18:50 | disposition home or self-care (01) ==
LOC: HO.ED 18:37 → HO.SSS 18:45
PROVIDERS: Anesthesiology; Urology; Emergency Provider Emergency Medicine; PCP Internal Medicine; Visit Provider Physician Assistant
DX: N13.2 Hydronephrosis with renal and ureteral calculous obstruction (principal); R10.9 Unspecified abdominal pain; F12.90 Cannabis use, unspecified, uncomplicated; J45.909 Unspecified asthma, uncomplicated; E11.9 Type 2 diabetes mellitus without complications; I10 Essential (primary) hypertension; G47.33 Obstructive sleep apnea (adult) (pediatric); F17.210 Nicotine dependence, cigarettes, uncomplicated; E66.9 Obesity, unspecified; Z68.36 Body mass index [BMI] 36.0-36.9, adult; Z79.899 Other long term (current) drug therapy
CPT/HCPCS: 52356; 36415; 76775; 80053; 81003; 81025; 82365; 82947; 85025; 88300; 96361; 96374; 96376; 99285; C1726; C1758; C1769; C2617; J0131; J0690; J1100; J2250; J2270; J2405; J2704; J3010; J7120; Q9967

== ENCOUNTER → 2024-02-10 10:24 | Outpatient (BNV) | payer OTHER, SELFPAY | PROVIDERS: Emergency Provider Emergency Medicine; PCP Internal Medicine; Visit Provider Urology | DX: N20.1 Calculus of ureter (principal) | CPT/HCPCS: 52356; 74420; 99284 ==

== ENCOUNTER 2024-02-13 14:57 | Outpatient (AMB) | payer OTHER, SELFPAY ==
--- NOTE | 2024-02-13 15:00 | A.OFFVIS_ITS ---
Intake Visit Reasons: cysto stent removal Intake Note: Patient is present for Cystoscopy/stent removal Urology Medication:pyridium, percocet, tolterodine, tamsulosin Antibiotic Allergy:cipro, penicillin Blood Thinner:none Lot:[id number] Exp:07/31/2026 [employer] Required: No Allergies ciprofloxacin [From CIPRO] Allergy (Intermediate, Verified 02/13/24 16:37) HIVES Penicillins [PENICILLINS] Allergy (Intermediate, Verified 02/13/24 16:37) HIVES HPI Comments Details: Nancy was initially evaluated in the [facility] emergency room on 02/10/24, admitted with complains of worsening left flank pain. She was previously seen on 02/07/24 and CTAP on 02/07/24 noted 5 mm -mid left ureteral stone, right kidney unremarkable. 02/10/24 renal US was no hydronephrosis. She is s/p left ureteroscopy, and ureteral stone was visualized and lasered with insertion of ureteral stent on 02/10/24. Here for ureteral stent removal. Ureteral stent removed. Pt tolerated well. Plan metabolic workup. 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 Information consent for procedure given to the patient. Discussed technical aspects, risks, benefits and alternatives in full. Addressed all of the patient's questions and concerns regarding the procedure. The patient demonstrated knowledge and understanding. They wish to proceed with this procedure. Preparation The patient was prepped in the usual manner. A geophysical e logger was present and in the room. Genitalia was prepped with betadine solution in a sterile manner. Lidocaine Jelly 2% was placed into the urethra and 16Fr flexible Olympus cystoscope was inserted into the meatus after adequate lubrication. Procedure Time out per protocol performed. Bladder Inspection Cystoscopy findings: mild edema ureteral orifice which is expected, distal end of ureteral stent visualized. The grasping forceps were used and the stent was removed without difficulty. [id number] with stent removal DISPOSABLE SCOPE URO-G FLEXIBLE SCOPE Procedure code (CPT) selection complete Office Meds lidocaine HCl 2 % mucosal jelly in applicator Performing Provider: Theo Herdeia MD Performing Location[facility] Administered by: Anthony Ambriz LPN on 02/13/24 15:16 Dose Route Admin Location Dispensed Lot Number Expiration Date [facility] [employer] 10 mL intra-urethral 10 mL naproxen 500 mg tablet Performing Provider: Theo Heredia MD Performing Location: [facility] Administered by: Anthony Ambriz LPN on 02/13/24 15:16 Dose Route Admin Location Dispensed Lot Number Expiration Date [place] [employer] 500 mg PO 1 tab ciprofloxacin HCl 500 mg tablet Performing Provider: Theo Heredia MD Performing Location: [facility] Administered by: Anthony Ambriz LPN on 02/13/24 15:16 Dose Route Admin Location Dispensed Lot Number Expiration Date ND [employer] 500 mg PO 1 tab Results AMB Urinalysis, Automated UA Leukoctes 500 Rosey/uL Last Edit by NICOLE Celis on 02/13/24 15:17 UA Nitrite Positive Last Edit by NICOLE Celis on 02/13/24 15:17 UA Urobilinogen 8 mg/dL Last Edit by NICOLE Celis on 02/13/24 15:17 UA Protein 300 mg/dL Last Edit by NICOLE Celis on 02/13/24 15:17 UA pH 5.0 Last Edit by NICOLE Celis on 02/13/24 15:17 UA Blood 200 Angelo/uL Last Edit by NICOLE Celis on 02/13/24 15:17 UA Specific [place] 1.020 Last Edit by NICOLE Celis on 02/13/24 15: 17 UA Ketone Positive Last Edit by NICOLE Celis on 02/13/24 15:17 UA Bilirubin 4 mg/dL Last Edit by NICOLE Celis on 02/13/24 15:17 UA Glucose 250 mg/dL Last Edit by NICOLE Celis on 02/13/24 15:17 Results Reviewed Results Reviewed: Laboratory Last Values Urine pH (Auto) 5.0 02/13/24 15:15 Specific [place] (Auto) 1.020 02/13/24 15:15 Urine Protein (Auto) 300 mg/dL 02/13/24 15:15 Glucose (UA)(Auto) 250 mg/dL 02/13/24 15:15 Urine Ketones (Auto) Positive 02/13/24 15:15 Urine Blood (Auto) 200 Angelo/uL 02/13/24 15:15 Urine Nitrite (Auto) Positive 02/13/24 15:15 Urine Bilirubin (Auto) 4 mg/dL 02/13/24 15:15 Urine Urobilinogen (Auto) 8 mg/dL 02/13/24 15:15 Leukocyte Esterase (Auto) 500 Rosey/uL 02/13/24 15:15 Date of Service: 02/07/24 CT ABDOMEN AND PELVIS WITHOUT CONTRAST CLINICAL INFORMATION: 38-year-old female with left flank pain COMPARISON: May 16, 2023 TECHNIQUE: Multidetector volumetric imaging was performed from the superior aspect of the liver through the pubic symphysis. Sagittal and coronal reformatted images were obtained on the technologist's workstation. This CT examination was performed using dose optimization techniques as appropriate, variously including the following: *Automated exposure control *Adjustment of mA and/or kV according to patient size (this includes techniques or standardized protocols for targeted exams where dose is matched to indication/reason for exam; i.e. extremities or head) *Use of iterative reconstruction technique DLP: 794 mGy-cm FINDINGS: LUNG BASES: The visualized lung bases are unremarkable. LIVER, GALLBLADDER, AND BILIARY TREE: The liver is mildly enlarged all normal shape, and attenuation. No focal hepatic lesion or biliary ductal dilatation is present. The gallbladder is unremarkable with no evidence of radiopaque gallstones, gallbladder wall thickening, or obvious pericholecystic inflammatory changes. PANCREAS: Unremarkable. SPLEEN: Unremarkable. ADRENAL GLANDS: Unremarkable. KIDNEYS AND URETERS: There is mild hydroureteronephrosis on the left secondary to partial obstruction of the mid left ureter by small migrating from the collecting system stone measuring approximately 0.5 cm long and 0.2 cm wide right kidney is unremarkable and there is no hydroureteronephrosis. BLADDER: Unremarkable. GASTROINTESTINAL TRACT: The small and large bowel are unremarkable. The appendix is unremarkable. ABDOMINAL WALL: No significant hernia is appreciated. LYMPH NODES: Normal. VASCULAR: Unremarkable. PELVIC VISCERA: There is an IUD in the uterus OSSEOUS STRUCTURES: Unremarkable. IMPRESSION: Mild hydroureteronephrosis on the left secondary to partial obstruction of the mid left ureter by small migrating from the left collecting system stone. Assessment & Plan Assessment & Plan (1) Left ureteral stone: Code(s): N20.1 - Calculus of ureter Category: Medical Plan Left ureteral stent removed. Discussed metabolic workup, 24 hr urine. Orders: Orders AMB Cystoscopy 02/13/24 N13.9 - Obstructive and reflux uropathy, unspecified, R10.9 - Unspecified abdominal pain AMB Urinalysis Automated 02/13/24 Z13.9 - Encounter for screening, unspecified Patient Instructions: The patient had an opportunity to ask questions regarding treatment plan. The patient expressed understanding and agreement with the above treatment plan. The patient is aware they should contact our office by phone for worsening of their current condition or the appearance of new symptoms. Compliance is encouraged with any medications and followup testing that is ordered. It is a privilege to be allowed the opportunity to participate in the urologic care of your patient. If you have any questions or concerns regarding treatment for the above conditions please do not hesitate to contact me. The office telephone contact is [phone]. This note is constructed in part using voice recognition software. While every effort has been made to ensure accuracy server programmer errors may have been included. Yours sincerely, Theo Heredia MD Coding Level of Care Code Procedure Only Diagnoses Left ureteral stone N20.1 CPT Codes Cystoscopy - CPT: 48265-[id number] with stent removal ([id number])
== END 2024-02-13 16:08 | disposition home or self-care (01) ==
PROVIDERS: PCP Internal Medicine; Visit Provider Urology
DX: N13.9 Obstructive and reflux uropathy, unspecified (principal); Z96.0 Presence of urogenital implants; R10.9 Unspecified abdominal pain; Z13.9 Encounter for screening, unspecified
CPT/HCPCS: 52310

== ENCOUNTER → 2024-02-13 14:57 | Outpatient (BNVA) | payer OTHER, SELFPAY | PROVIDERS: PCP Internal Medicine; Visit Provider Urology | DX: Z48.816 Encounter for surgical aftercare following surgery on the genitourinary system (principal) | CPT/HCPCS: 52310; 81003 ==

== ENCOUNTER 2024-02-13 16:08 | Emergency (ER) | payer OTHER, SELFPAY ==
[2024-02-13 16:35] VITALS: BP 137/82; PULSE 73; RESP 16; TEMP 36.4; O2SAT 95; BMI 42.0
--- NOTE | 2024-02-13 16:36 | ED_ITS ---
HPI - General Adult General Chief complaint: Urogenital-Female Stated complaint: dizzy, stent removed Time Seen by Provider: 02/13/24 19:09 Source: patient, RN notes reviewed and old records reviewed Mode of arrival: ambulatory Limitations: no limitations History of Present Illness ED Provider: Josiah HPI narrative: 38 old female presents for evaluation of dizziness, lightheadedness. Patient had a ureteral stent removed today at 3:30 p.m.. While she is waiting for her ride home she felt dizzy and felt like she was going to pass out She thinks this was likely due to the pain that she was experiencing in her flank Patient reports that she was close to the ER so she presented for evaluation. She never had any chest pain, shortness of breath, palpitations Her symptoms resolved after a few minutes She is currently asymptomatic Related Data Home Medications ?Medication ?Instructions ?Recorded ?Confirmed albuterol sulfate 90 mcg/actuation 2 puff inhalation Q6H PRN wheezing 02/10/24 02/10/24 aerosol inhaler (Ventolin HFA) budesonide-formoterol HFA 160 2 puff inhalation BID 02/10/24 02/10/24 mcg-4.5 mcg/actuation aerosol inhaler dulaglutide 1.5 mg/0.5 mL 1.5 mg subcut TU 02/10/24 02/10/24 subcutaneous pen injector (Trulicity) losartan 50 mg tablet 50 mg PO DAILY 02/10/24 02/10/24 montelukast 10 mg tablet 10 mg PO DAILY 02/10/24 02/10/24 Previous Rx's ?Medication ?Instructions ?Recorded ibuprofen 600 mg tablet 600 mg PO Q6H PRN fever or pain 05/16/23 #30 tabs ketorolac 10 mg tablet 10 mg PO TID PRN pain 5 days #15 02/07/24 tabs nitrofurantoin 100 mg PO BID 5 days #10 caps 02/07/24 monohydrate/macrocrystals 100 mg capsule (Macrobid) prednisone 20 mg tablet 20 mg PO DAILY 5 days #5 tabs 02/07/24 tamsulosin 0.4 mg capsule (Flomax) 0.4 mg PO DAILY 2 weeks #14 caps 02/07/24 phenazopyridine 200 mg tablet 200 mg PO Q8H PRN pain #30 tabs 02/10/24 (Pyridium) tolterodine 4 mg capsule,extended 4 mg PO DAILY bladder spasms #30 02/10/24 release 24 hr caps Allergies Allergy/AdvReac Type Severity Reaction Status Date / Time ciprofloxacin [From CIPRO] Allergy Intermediate HIVES Verified 02/13/24 16:37 Penicillins [PENICILLINS] Allergy Intermediate HIVES Verified 02/13/24 16:37 Review of Systems 2 Constitutional: Constitutional: Denies body ache(s), Denies chills and Denies fever(s) Eyes: Eyes: Denies blurry vision ENT: Reports dizziness and Denies sore throat Cardiovascular: Cardiovascular: Denies chest pain and Denies dyspnea Respiratory: Respiratory: Denies cough and Denies dyspnea Gastrointestinal: Gastrointestinal: Denies abdominal pain, Denies nausea and Denies vomiting Musculoskeletal: Musculoskeletal: Denies back pain Neurologic: Reports dizziness Psychiatric: Psychiatric: Denies anxiety PMFSH Past Medical History Medical History IUD (intrauterine device) in place Psoriasis GOLDIE (obstructive sleep apnea) Asthma Diabetes Hypertension Surgical History History of hernia surgery History of surgical removal of pilonidal cyst Previous section S/P cystoscopy with ureteral stent placement Social History Social History 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 (2 children) Do you presently have visiting nurse or other home services: No Patient Tobacco Use Status: Current someday Tobacco user Tobacco use type: Cigarette Cigarettes Per Day: 2 Years Smoked: 10 Smoked in Last 30 Days: Yes Use of substances other than those prescribed or required for medical reasons: Yes Substance Use Type: Marijuana Substance Use Frequency: Occasionally Advance Directives: No Advance Directives Information Provided: No Patient : No Physical Exam ED Vital Signs: Vital Signs - 24 hr 02/13/24 16:35 02/13/24 17:41 02/13/24 17:43 Temperature 97.6 F 97.7 F 97.7 F Pulse Rate 73 77 77 Respiratory Rate 16 16 16 Blood Pressure 137/82 114/74 114/74 Pulse Oximetry 95 97 97 Oxygen Delivery Method Room Air Room Air Room Air 02/13/24 19:19 02/13/24 19:20 Temperature 98.0 F 98.0 F Pulse Rate 79 79 Respiratory Rate 17 17 Blood Pressure 138/84 138/84 Pulse Oximetry 98 98 Oxygen Delivery Method Room Air Room Air BMI result Body Mass Index 42.0 Const General: healthy appearing, comfortable, no acute distress, alert and awake Nutritional Appearance: well nourished Orientation/consciousness: patient oriented x3 HENMT Head: Yes normocephalic and Yes atraumatic Eyes Eyelids: Yes eyelids normal Conjunctivae: conjunctivae normal Sclerae: sclerae normal Corneas: corneas normal Pupils: Equal, round and reactive pupils present EOM: EOMs intact bilaterally Neck Neck: Yes full ROM Resp Effort & Inspection: normal respiratory effort, able to speak in complete sentences and not labored Cardio Rate: regular rate Rhythm: regular rhythm GI Inspection: No distended Palpation (GI): Soft to palpation, not firm, nontender, no guarding and not rigid Skin General skin exam: elasticity normal Neuro General: patient oriented x3 Cranial nerves: Yes Equal, round and reactive pupils present and Yes Bilaterally intact EOM present Cognition (Neuro): normal cognition Extrem Other: Moving all extremities well without any obvious deformities Course Course Course Narrative: This is a Rapid Medical Examination (RME) performed by Bertha Looney PA-C in triage. Full HPI, ROS, assessment and treatment plan per primary provider in the Main ED. 38 yo female here for eval of dizziness and nausea s/p ureteral stent removal by Dr. Levine at 1530 today. stent originally placed d/t left hydroureternephrosis. Plan: labs, ekg Medical Decision Making Medical Decision Making MDM Narrative: 38-year-old female presents for evaluation of a near syncopal episode/dizziness shortly after having a stent removed at a urology appointment. She has been asymptomatic for several hours now in his requesting discharge. Her labs are significant for a mild leukocytosis which may be related to her stent/removal. Her chemistries have no significant abnormalities. The patient is a diabetic, her random glucose is 132. Her BUN is just above normal at 17 which again is likely related to her stent placement and removal. The patient's EKG is nonischemic, is normal sinus rhythm without arrhythmia or ectopy. Her vital signs are stable. Essentially, hypoglycemia, cardiac causes, dehydration are less likely the cause of her symptoms. This may have been a vasovagal episode after her procedure. Again, the patient is asymptomatic with a negative workup and is requesting discharge. She will be discharged as I feel is appropriate at this time. Differential Diagnosis Differential Diagnoses: The differential diagnosis associated with the presentation includes Near-syncope Lightheadedness Dizziness Vasovagal syncope Orthostasis Dehydration Hypoglycemia Lab Data MDM Lab Attestation statement: I reviewed the patient's lab results. 02/13/24 17:13 02/13/24 17:13 Labs: Lab Results 02/13/24 Range/Units 17:13 WBC 11.0 H (4.8-10.8) X10*3/uL RBC 4.19 L (4.20-5.50) X10*6/uL Hgb 13.2 (12.0-16.0) g/dl Hct 39.0 (37.0-47.0) % MCV 93.1 (80.0-98.0) fL MCH 31.5 (27.0-33.0) pg MCHC 33.8 (31.0-35.0) g/dl RDW 12.6 (11.0-16.0) % Plt Count 342 (160-400) X10*3/uL MPV 8.5 L (9.4-12.3) fL Immature Gran % (Auto) 0.4 (0.0-0.4) % Neut % (Auto) 51.8 (45-73) % Lymph % (Auto) 39.7 (20-40) % Hardeman % (Auto) 5.3 (2-11) % Eos % (Auto) 2.1 (0-4) % Baso % (Auto) 0.7 (0-2) % Lymph # (Auto) 4.4 (1.2-4.9) X10*3/uL Hardeman # (Auto) 0.6 (0.1-1.2) X10*3/uL Eos # (Auto) 0.2 (0.0-0.4) X10*3/uL Baso # (Auto) 0.1 (0.0-0.2) X10*3/uL Abs Immat Gran (auto) 0.04 H (0.00-0.03) X10*3/uL Absolute Neuts (auto) 5.7 (2.0-8.3) x10*3/uL Absolute Nucleated RBC 0.000 (0.0-0.012) X10*3/uL Nucleated RBC % (auto) 0.0 (0.0-0.2) /100WBC Sodium 137 (135-145) mmol/L Potassium 3.5 (3.3-5.1) mmol/L Chloride 103 (96-108) mmol/L Carbon Dioxide 23 (22-29) mmol/L Anion Gap 15 (12-20) BUN 17 H (9-16) mg/dL Creatinine 0.82 (0.5-1.4) mg/dL Estim Creat Clear Calc 111.2 Estimated GFR > 60 Random Glucose 132 H (60-115) mg/dL Calcium 9.5 (8.4-10.2) mg/dL Magnesium 2.0 (1.6-2.6) mg/dL Total Bilirubin 1.0 (0.0-1.0) mg/dL AST 19 (5-31) U/L ALT 24 (0-31) U/L Alkaline Phosphatase 59 (39-117) U/L Total Protein 6.9 (6.5-8.0) g/dL Albumin 4.3 (3.5-5.0) g/dL Independent Interpretation I performed an independent interpretation of an: EKG Discharge Plan Discharge Clinical Impression: Dizziness Patient Disposition: Home, Self-Care Instructions: Dizziness (ED) Additional Instructions: Your workup in the ER today was reassuring. This includes your blood work, your EKG. Your vital signs were also normal Follow-up with your primary doctor, return for new or worsening symptoms Prescriptions: No Action phenazopyridine [Pyridium] 200 mg tablet 200 mg PO Q8H PRN (Reason: pain) Qty: 30 0RF Rx Instructions: take with food tolterodine 4 mg capsule,extended release 24hr 4 mg PO DAILY Qty: 30 0RF ibuprofen 600 mg tablet 600 mg PO Q6H PRN (Reason: fever or pain) Qty: 30 0RF prednisone 20 mg tablet 20 mg PO DAILY 5 Days Qty: 5 0RF tamsulosin [Flomax] 0.4 mg capsule 0.4 mg PO DAILY 14 Days Qty: 14 0RF ketorolac 10 mg tablet 10 mg PO TID PRN (Reason: pain) 5 Days Qty: 15 0RF nitrofurantoin monohyd/m-cryst [Macrobid] 100 mg capsule 100 mg PO BID 5 Days Qty: 10 0RF Rx Instructions: must administer with a meal/food, 5 day course, started Friday02/07/24 losartan 50 mg tablet 50 mg PO DAILY albuterol sulfate [Ventolin HFA] 90 mcg/actuation HFA aerosol inhaler 2 puff inhalation Q6H PRN (Reason: wheezing) budesonide-formoterol 160-4.5 mcg/actuation HFA aerosol inhaler 2 puff inhalation BID Trulicity 1.5 mg/0.5 mL pen injector 1.5 mg subcut TU montelukast 10 mg Tablet 10 mg PO DAILY Interventions: ED Discharge Assessment Last Done: 02/13/24 19:20 Discharge Date/Time: 02/13/24 19:21 Print Language: Thai
--- NOTE | 2024-02-13 16:40 | ECG_ITS ---
Test Reason : DIZZINESS Blood Pressure : / mmHG Vent. Rate : 067 BPM Atrial Rate : 067 BPM P-R Int : 144 ms QRS Dur : 080 ms QT Int : 420 ms P-R-T Axes : 032 017 040 degrees QTc Int : 443 ms Normal sinus rhythm Normal ECG No previous ECGs available Referred By: Debbie Looney Electronically Signed By:MAURICIO TERESA
[2024-02-13 17:18] LABS: MANUAL DIFF FLAG NO
[2024-02-13 17:20] LABS: Basophils Absolute Auto 0.1 X10*3/uL (0.0-0.2); Basophils Percent Auto 0.7 % (0-2); Eosinophils Absolute Auto 0.2 X10*3/uL (0.0-0.4); Eosinophils Percent Auto 2.1 % (0-4); Hemoglobin 13.2 g/dl (12.0-16.0); Imm Gran Abs Auto 0.04 X10*3/uL (0.00-0.03); Imm Gran Pct Auto 0.4 % (0.0-0.4); Lymphocytes Absolute Auto 4.4 X10*3/uL (1.2-4.9); Lymphocytes Percent Auto 39.7 % (20-40); Mean Corpuscular HGB Conc 33.8 g/dl (31.0-35.0); Mean Corpuscular Hemoglobin 31.5 pg (27.0-33.0); Mean Corpuscular Volume 93.1 fL (80.0-98.0); Mean Platelet Volume 8.5 fL (9.4-12.3); Monocytes Absolute Auto 0.6 X10*3/uL (0.1-1.2); Monocytes Percent Auto 5.3 % (2-11); Neutrophils Absolute Auto 5.7 x10*3/uL (2.0-8.3); Neutrophils Percent Auto 51.8 % (45-73); Platelet Count 342 X10*3/uL (160-400); Red Blood Count 4.19 X10*6/uL (4.20-5.50); Red Cell Distribution Width 12.6 % (11.0-16.0)
[2024-02-13 17:35] LABS: Alanine Aminotransferase 24 U/L (0-31); Albumin Level 4.3 g/dL (3.5-5.0); Alkaline Phosphatase 59 U/L (39-117); Anion Gap 15 (12-20); Aspartate Amino Transferase 19 U/L (5-31); Blood Urea Nitrogen 17 mg/dL (9-16); Calcium 9.5 mg/dL (8.4-10.2); Carbon Dioxide 23 mmol/L (22-29); Chloride 103 mmol/L (96-108); Creatinine Clr Calc Pharmacy 111.2; Estimated Glomerular Filt Rate > 60; Glucose Random 132 mg/dL (60-115); Potassium 3.5 mmol/L (3.3-5.1); Sodium 137 mmol/L (135-145); Total Protein 6.9 g/dL (6.5-8.0)
[2024-02-13 17:41] VITALS: BP 114/74; PULSE 77; RESP 16; TEMP 36.5; O2SAT 97
[2024-02-13 17:43] VITALS: BP 114/74; PULSE 77; RESP 16; TEMP 36.5; O2SAT 97
--- NOTE | 2024-02-13 18:37 | PC.NURSE ---
Pt comes to ED today s/p stent removal procedure. States she was waiting out front for her ride when she felt dizzy and weak so she walked into the ED. VSS, A&Ox3. Pt reports her symptoms have subsided and she would like leave to return home to rest.
[2024-02-13 19:19] VITALS: BP 138/84; PULSE 79; RESP 17; TEMP 36.7; O2SAT 98
[2024-02-13 19:20] VITALS: BP 138/84; PULSE 79; RESP 17; TEMP 36.7; O2SAT 98
== END 2024-02-13 19:21 | disposition home or self-care (01) ==
PROVIDERS: Physician Assistant Medical; Emergency Provider Emergency Medicine Emergency Medical Services; PCP Internal Medicine
DX: R42 Dizziness and giddiness (principal); E11.9 Type 2 diabetes mellitus without complications; I10 Essential (primary) hypertension; J45.909 Unspecified asthma, uncomplicated; F17.210 Nicotine dependence, cigarettes, uncomplicated; Z79.85 Long-term (current) use of injectable non-insulin antidiabetic drugs; Z79.899 Other long term (current) drug therapy
CPT/HCPCS: 36415; 80053; 83735; 85025; 93005; 99283; 99285